=== PATIENT | male | born 1950 | race Caucasian/White ===

== ENCOUNTER 2017-02-21 11:48 | Emergency (ER) | payer OTHER ==
[2017-02-21 11:55] VITALS: RESP 16
--- NOTE | 2017-02-21 12:40 | EDPHY ---
H & P Time Seen by Provider: 02/21/17 12:12 HPI/ROS: CHIEF COMPLAINT: Right-sided abdominal pain HISTORY OF PRESENT ILLNESS: 66-year-old man woke up this morning felt fine and at 7:00 a.m. he developed right lower quadrant abdominal pain radiating to his back. He felt like he needed to have a bowel movement when he was sitting on the toilet at 10:00 a.m. waiting for his to come take him to the hospital symptoms completely resolved. No hematuria or dysuria. No diarrhea. He had a single episode of nausea and vomiting. No weakness or numbness in extremities. No recent fall injury or trauma. REVIEW OF SYSTEMS: Eye: no change in vision ENT: no sore throat Cardiac: no chest pain or syncope Pulmonary: no cough or SOB Abdomen: HPI Musculoskeletal: no back pain Skin: no rash Neuro: no headache Constitutional: no fever : no urinary symptoms A comprehensive 10 point review of systems is otherwise negative aside from elements mentioned in the history of present illness. PAST MEDICAL HISTORY: He had bilateral popliteal aneurysm bypass and left knee surgery. Social history: Here with his General Appearance: Alert and conversant, cooperative. Eyes: No scleral icterus. ENT, Mouth: Normal mucous membranes. Respiratory: Normal respiratory effort, breath sounds equal, lungs are clear to auscultation. Cardiovascular: Regular rate and rhythm. Gastrointestinal: Abdomen is soft and non tender. No pulsatile mass, normal femoral pulses, normal male , no hernia. No rebound or guarding. Neurological: Alert and oriented x3. Normally conversant. Face symmetric, ambulatory. Skin: Warm and dry, no rashes. No zoster Musculoskeletal: No peripheral edema and no joint swelling. Psychiatric: Not agitated. Emergency Department course/MDM: Symptoms completely resolved. Procedure: Limited ultrasound of aorta. Indication: Abdominal pain. Findings: No enlarged aorta or aneurysm visualized. Interpretation: Negative for AAA. Images personally obtained and interpreted by myself. Images archived. More likely to be renal colic, plan for urinalysis. Patient is currently asymptomatic. 1300: Results discussed has microscopic hematuria and currently asymptomatic, likely passed a kidney stone. Discharge with urine strainer and referral to primary care. Discussed with the patient that I think imaging would be clinically indicated as symptoms have completely resolved, patient is in agreement. Oxygen saturation incidentally noted is 91%, has no respiratory symptoms, speaks in full sentences. Smoking Status: Former smoker Constitutional: Initial Vital Signs Temperature (C) 36.8 C 02/21/17 11:51 Heart Rate 72 02/21/17 11:51 Respiratory Rate 16 02/21/17 11:51 Blood Pressure 118/77 02/21/17 11:51 O2 Sat (%) 91 L 02/21/17 11:51 O2 Delivery Mode Room Air Allergies/Adverse Reactions: No Known Allergies Allergy (Unverified 02/21/17 11:51) Home Medications: Medication Instructions Recorded Aspirin 02/21/17 Medical Decision Making Differential Diagnosis: Differential considered including but not limited to aortic aneurysm, renal colic, UTI, appendicitis, bowel obstruction, other vascular including mesenteric ischemia. - Data Points Laboratory Results: 02/21/17 12:12 Urine RBC 50-182 /hpf H /hpf (0-3) Urine WBC 1-3 /hpf /hpf (0-3) Ur Epithelial Cells NONE SEEN /lpf /lpf (NONE-1+) Urine Mucus 2+ /lpf H /lpf (NONE-1+) Departure - Departure Disposition: Home, Routine, Self-Care Clinical Impression: Renal colic on right side Condition: Good Instructions: Renal Colic (ED) Additional Instructions: Return for recurrent severe pain that does not go way in a couple of hours. Strain urine and bring any stone you get your primary care doctor for analysis. Referrals: [facility] [Other] - As per Instructions
[2017-02-21 12:48] LABS: MUCUS 2+ /lpf (NONE-1+); RBC,URINE 50-182 /hpf (0-3)
[2017-02-21 13:13] VITALS: BP 123/83; PULSE 79; TEMP 97.5; O2SAT 90
== END 2017-02-21 13:12 | disposition home or self-care (01) ==
DX: N23 Unspecified renal colic (principal); Z79.82 Long term (current) use of aspirin; Z87.891 Personal history of nicotine dependence

== ENCOUNTER 2018-02-28 04:55 | Emergency (ER) | payer OTHER ==
--- NOTE | 2018-02-28 05:04 | EDPHY ---
H & P Stated Complaint: RLQ Pain radiating to penis and rectum Time Seen by Provider: 02/28/18 05:04 HPI/ROS: HPI CHIEF COMPLAINT: Unable to urinate. HISTORY OF PRESENT ILLNESS: Very pleasant 67-year-old male, otherwise healthy presents emergency room stating he is unable to urinate. Patient reports that he urinated around 9:00 p.m. Last night, and then again around midnight. It is now 515 in the morning. He states he was trying to urinate around 5:00 a.m. In the morning was unable to do so. Fall the urge to do so. He also reports he had some right-sided back and right lower quadrant abdominal pain. Radiating into his groin. He states he has had a history of kidney stones and feels somewhat similar but not nearly as intense. He denies dysuria or blood in his urine, denies fever, denies vomiting, denies chest pain or shortness of breath. Main complaint unable to urinate and some right-sided flank pain. Of note upon arrival to the emergency room we did perform bladder scan there is not a large amount of urine in his bladder. Past Medical History: Kidney stones, DVT, popliteal aneurysm Past Surgical History: Fem-pop bypass x2. Social History: Denies drugs alcohol tobacco. Family History: Noncontributory ROS REVIEW OF SYSTEMS: 10 Systems were reviewed and negative with the exception of the elements mentioned in the history of present illness. Exam Constitutional nontoxic triage nursing summary reviewed, vital signs reviewed, awake/alert. Eyes normal conjunctivae and sclera, EOMI, PERRLA. HENT normal inspection, atraumatic, moist mucus membranes, no epistaxis, neck supple/ no meningismus, no raccoon eyes. Respiratory clear to auscultation bilaterally, normal breath sounds, no respiratory distress, no wheezing. Cardiovascular rate normal, regular rhythm, no murmur, no edema, distal pulses normal. Gastrointestinal large ventral hernia on exam, non pulsatile mass, no suprapubic tenderness or distention, soft, non-tender, no rebound, no guarding , normal bowel sounds, no distension, no pulsatile mass. Genitourinary no CVA tenderness. Musculoskeletal no midline vertebral tenderness, full range of motion, no calf swelling, no tenderness of extremities, no meningismus, good pulses, neurovascularly intact. Skin pink, warm, & dry, no rash, skin atraumatic. Neurologic awake, alert and oriented x 3, AAOx3, moves all 4 extremities equally, motor intact, sensory intact, CN II-XII intact, normal cerebellar, normal vision, normal speech. Psychiatric normal mood/affect. Heme/Lymph/Immune no lymphadenopathy. Differential Diagnosis: Includes but is not limited to in a particular order UTI, cystitis, pyelonephritis, kidney stone, hydroureter, hydronephrosis, obstructive uropathy, outflow bladder obstruction, urinary retention, BPH Medical Decision Making: Plan for this patient bladder scan initially. Bladder scan did not show much urine in his bladder. IV will be established, IV fluids, CT scan abdomen pelvis without contrast for right-sided flank pain. Check UA, kidney function and re-evaluate. Re-evaluation: CT SCAN ABDOMEN PELVIS WITHOUT CONTRAST FOR RIGHT FLANK PAIN SHOWS A STONE 8 MM X 4 MM AT THE URETEROVESICULAR JUNCTION BULGING INTO THE BLADDER. HYDRONEPHROSIS. CALLED BY DR. 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 He understands he has these and was previously noted that he has these. He is due in April to have his routine follow-up. I did explain he should be aware of these and had them further evaluated. He has no leg pain or leg weakness. His main complaint right-sided flank pain a kidney stone. Return precautions discussed with the patient understands return emergency room develops worsening flank pain, abdominal pain, fever, vomiting. Follow up with Urology Prescription given for [place], Zofran, Flomax. Understands drink lots of fluids Return emergency room if worsening symptoms questions or concerns. Source: Patient - Personal History Current Tetanus Diphtheria and Acellular Pertussis (TDAP): No - Medical/Surgical History Hx Asthma: No Hx Chronic Respiratory Disease: Yes Hx Diabetes: No Hx Cardiac Disease: No Hx Renal Disease: No Hx Cirrhosis: No Hx Alcoholism: Yes Hx HIV/AIDS: No Hx Splenectomy or Spleen Trauma: No Other PMH: RANJIT LE vascular bypass, L knee surgery, - Social History Smoking Status: Former smoker Constitutional: Initial Vital Signs Temperature (C) 36.7 C 02/28/18 04:58 Heart Rate 66 02/28/18 04:58 Respiratory Rate 20 02/28/18 04:58 Blood Pressure 150/88 H 02/28/18 04:58 O2 Sat (%) 90 L 02/28/18 04:58 O2 Delivery Mode Room Air Allergies/Adverse Reactions: No Known Allergies Allergy (Unverified 02/28/18 04:57) Home Medications: Medication Instructions Recorded Aspirin 02/21/17 Hydrocodone/APAP 5/325 [[place]ado 1 - 2 tab PO Q4H PRN #10 tab 02/28/18 5/325] Ondansetron HCl [Zofran] 4 mg PO Q4-6PRN PRN #10 tablet 02/28/18 Tamsulosin HCl [Flomax] 0.4 mg PO DAILY #10 cap 02/28/18 Medical Decision Making - Data Points Laboratory Results: Laboratory Results 02/28/18 05:30 02/28/18 05:30 02/28/18 02/28/18 02/28/18 05:40 05:30 05:30 WBC 7.11 10^3/uL 10^3/uL (3.80-9.50) RBC 5.87 10^6/uL 10^6/uL (4.40-6.38) Hgb 18.4 g/dL H g/dL (13.7-17.5) Hct 54.5 % H % (40.0-51.0) MCV 92.8 fL fL (81.5-99.8) MCH 31.3 pg pg (27.9-34.1) MCHC 33.8 g/dL g/dL (32.4-36.7) RDW 14.2 % % (11.5-15.2) Plt Count 175 10^3/uL 10^3/uL (150-400) MPV 10.1 fL fL (8.7-11.7) Neut % (Auto) 81.5 % H % (39.3-74.2) Lymph % (Auto) 10.4 % L % (15.0-45.0) [place] % (Auto) 7.3 % % (4.5-13.0) Eos % (Auto) 0.1 % L % (0.6-7.6) Baso % (Auto) 0.4 % % (0.3-1.7) Nucleat RBC Rel Count 0.0 % % (0.0-0.2) Absolute Neuts (auto) 5.79 10^3/uL 10^3/uL (1.70-6.50) Absolute Lymphs (auto) 0.74 10^3/uL L 10^3/uL (1.00-3.00) Absolute Monos (auto) 0.52 10^3/uL 10^3/uL (0.30-0.80) Absolute Eos (auto) 0.01 10^3/uL L 10^3/uL (0.03-0.40) Absolute Basos (auto) 0.03 10^3/uL 10^3/uL (0.02-0.10) Absolute Nucleated RBC 0.00 10^3/uL 10^3/uL (0-0.01) Immature Gran % 0.3 % % (0.0-1.1) Immature Gran # 0.02 10^3/uL 10^3/uL (0.00-0.10) Sodium 138 mEq/L mEq/L (135-145) Potassium 4.1 mEq/L mEq/L (3.5-5.2) Chloride 107 mEq/L mEq/L (97-110) Carbon Dioxide 23 mEq/l mEq/l (22-31) Anion Gap 8 mEq/L mEq/L (6-14) BUN 17 mg/dL mg/dL (7-23) Creatinine 0.8 mg/dL mg/dL (0.7-1.3) Estimated GFR > 60 Glucose 124 mg/dL H mg/dL (70-100) Calcium 9.5 mg/dL mg/dL (8.5-10.4) Total Bilirubin 0.7 mg/dL mg/dL (0.1-1.4) Conjugated Bilirubin 0.2 mg/dL mg/dL (0.0-0.5) Unconjugated Bilirubin 0.5 mg/dL mg/dL (0.0-1.1) AST 20 IU/L IU/L (17-59) ALT 22 IU/L IU/L (21-72) Alkaline Phosphatase 60 IU/L IU/L (38-126) Total Protein 7.3 g/dL g/dL (6.3-8.2) Albumin 4.2 g/dL g/dL (3.5-5.0) Lipase 55 IU/L IU/L (23-300) Urine Color YELLOW Urine Appearance MODERATELY TURBID Urine pH 5.0 (5.0-7.5) Ur Specific [place] 1.031 H (1.002-1.030) Urine Protein 1+ H (NEGATIVE) Urine Ketones NEGATIVE (NEGATIVE) Urine Blood 2+ H (NEGATIVE) Urine Nitrate NEGATIVE (NEGATIVE) Urine Bilirubin NEGATIVE (NEGATIVE) Urine Urobilinogen NEGATIVE EU EU (0.2-1.0) Ur Leukocyte Esterase NEGATIVE (NEGATIVE) Urine RBC 25-50 /hpf H /hpf (0-3) Urine WBC 5-10 /hpf H /hpf (0-3) Ur Epithelial Cells TRACE /lpf /lpf (NONE-1+) Urine Mucus 4+ /lpf H /lpf (NONE-1+) Urine Glucose NEGATIVE (NEGATIVE) Medications Given: Discontinued Medications Sodium Chloride (Ns) 1,000 mls @ 0 mls/hr IV EDNOW ONE; Wide Open PRN Reason: Protocol Stop: 02/28/18 05:16 Last Admin: 02/28/18 05:36 Dose: 1,000 mls Sodium Chloride (Ns) 1,000 mls @ 0 mls/hr IV EDNOW ONE; Wide Open PRN Reason: Protocol Stop: 02/28/18 05:16 Last Admin: 02/28/18 05:36 Dose: 1,000 mls Ketorolac Tromethamine (Toradol) 15 mg IVP EDNOW ONE Stop: 02/28/18 06:16 Last Admin: 02/28/18 06:20 Dose: 15 mg Ondansetron HCl (Zofran) 4 mg IVP EDNOW ONE Stop: 02/28/18 06:16 Last Admin: 02/28/18 06:20 Dose: 4 mg Departure - Departure Disposition: Home, Routine, Self-Care Clinical Impression: Kidney stone on right side Condition: Good Instructions: Kidney Stones (ED), Renal Colic (ED), Flank Pain (ED) Additional Instructions: 1. Drink lots of fluids 2. Follow up with Urology 3. Strain her urine 4. CT scan shows concern for femoral artery aneurysms please follow up with your doctor about this. Referrals: [facility] [Other] - As per Instructions John Sims MD [Medical Doctor] - As per Instructions Prescriptions: Hydrocodone/APAP 5/325 [[place] 5/325] 1 - 2 tab PO Q4H PRN #10 tab PRN Reason: Pain, Moderate Ondansetron HCl [Zofran] 4 mg PO Q4-6PRN PRN #10 tablet PRN Reason: Nausea/Vomiting, Use 1st Tamsulosin HCl [Flomax] 0.4 mg PO DAILY #10 cap
[2018-02-28] MEDS ORDERED: NS 1,000 ML IV ONE ×2 (05:15)
[2018-02-28 05:36] LABS: PLATELET COUNT 175 10^3/uL (150-400)
[2018-02-28 06:15] VITALS: BP 133/90
[2018-02-28] MEDS ORDERED: KETOROLAC 15 MG/1 ML SDV IVP ONE (06:15)
[2018-02-28] MEDS ORDERED: ONDANSETRON 4 MG/2 ML VIAL IVP ONE (06:15)
== END 2018-02-28 06:51 | disposition home or self-care (01) ==
PROC: 4A0D7LZ Measurement of Urinary Volume, Via Natural or Artificial Opening (ICD-10-PCS; principal; 2018-02-28)
DX: N13.2 Hydronephrosis with renal and ureteral calculous obstruction (principal); I72.4 Aneurysm of artery of lower extremity; E86.9 Volume depletion, unspecified
CPT/HCPCS: 96374; J1885; J2405

== ENCOUNTER 2018-05-07 14:18 | Emergency (ER) | payer OTHER ==
[2018-05-07] MEDS ORDERED: IPRATROPIUM/ALBUTEROL 3 ML DEYVIAL IH ONE (15:03)
--- NOTE | 2018-05-07 15:08 | EDPHY ---
H & P Stated Complaint: cough Time Seen by Provider: 05/07/18 14:53 HPI/ROS: CHIEF COMPLAINT: Cough, wheezing HISTORY OF PRESENT ILLNESS: 67-year-old male with COPD presents with cough and wheezing. Onset of nasal congestion and cough 5 days ago. Associated with subjective fever. The cough is productive and associated with wheezing. No shortness of breath and no fever today. Tolerating oral fluids well, without nausea. Previously diagnosed with COPD, but has never used an inhaler or steroids. REVIEW OF SYSTEMS: complete 10 point ROS reviewed and is negative except for the noted elements in the HPI - Personal History Current Tetanus/Diphtheria Vaccine: Unsure Current Tetanus Diphtheria and Acellular Pertussis (TDAP): Unsure - Medical/Surgical History Hx Asthma: No Hx Chronic Respiratory Disease: Yes Hx Diabetes: No Hx Cardiac Disease: No Hx Renal Disease: No Hx Cirrhosis: No Hx Alcoholism: Yes Hx HIV/AIDS: No Hx Splenectomy or Spleen Trauma: No Other PMH: RANJIT LE vascular bypass, L knee surgery, kidney stone, COPD - Social History Smoking Status: Former smoker Alcohol Use: Sober Drug Use: None - Physical Exam Exam: General Appearance: Alert, pleasant, nontoxic-appearing Eyes: Pupils equal and round, no conjunctival pallor or injection ENT, Mouth: Mucous membranes moist Neck: Normal inspection Respiratory: Normal respiratory rate, Diffuse expiratory wheezing Cardiovascular: Regular rate and rhythm Gastrointestinal: Abdomen is soft and nontender Neurological: A&O, nonfocal, normal gait Skin: Warm and dry Extremities: Normal inspection Psychiatric: Mood and affect normal Constitutional: Initial Vital Signs Temperature (C) 36.8 C 05/07/18 14:32 Heart Rate 76 05/07/18 14:32 Respiratory Rate 16 05/07/18 14:32 Blood Pressure 118/78 05/07/18 14:32 O2 Sat (%) 92 05/07/18 14:32 O2 Delivery Mode Room Air Allergies/Adverse Reactions: No Known Allergies Allergy (Unverified 05/07/18 14:31) Home Medications: Medication Instructions Recorded Albuterol [Proventil Inhaler HFA 2 puffs IH QID PRN #1 mdi 05/07/18 (*)] Azithromycin [Zithromax] 250 mg PO DAILY #6 tab 05/07/18 predniSONE 1 tab PO DAILY #15 tab 05/07/18 Medical Decision Making - Diagnostics Imaging Results: CXR: NAD Imaging: I viewed and interpreted images myself ED Course/Re-evaluation: This patient presents with cough and wheezing. A DuoNeb and prednisone 60 mg orally given. Feels better after the DuoNeb and decreased wheezing present. Chest x-ray reveals no evidence of pneumonia. However, given COPD and first episode of bronchospasm, I will give a trial of antibiotics for suspected pneumonia. Warning signs discussed. Differential Diagnosis: Differential diagnosis includes does not limited to pneumonia, respiratory failure, empyema, pulmonary edema, PE. - Data Points Medications Given: Discontinued Medications Albuterol/Ipratropium (Duoneb) 3 ml IH EDNOW ONE Stop: 05/07/18 15:04 Last Admin: 05/07/18 15:24 Dose: 3 ml Prednisone (Prednisone) 60 mg PO EDNOW ONE Stop: 05/07/18 16:03 Last Admin: 05/07/18 16:41 Dose: Not Given Departure - Departure Disposition: Home, Routine, Self-Care Clinical Impression: Chronic obstructive pulmonary disease with acute exacerbation Acute bronchitis Qualifiers: Bronchitis organism: unspecified organism Qualified Code(s): J20.9 - Acute bronchitis, unspecified Condition: Good Instructions: COPD (Chronic Obstructive Pulmonary Disease) (ED) Additional Instructions: Drink plenty of fluids. Use the albuterol inhaler as prescribed. Take antibiotics and steroids as prescribed. Return for worsening symptoms or any concerns. Referrals: Justa Thorne MD [Medical Doctor] - As per Instructions Prescriptions: Albuterol [Proventil Inhaler HFA (*)] 2 puffs IH QID PRN #1 mdi PRN Reason: Short Of Breath/Dyspnea Azithromycin [Zithromax] 250 mg PO DAILY #6 tab predniSONE 1 tab PO DAILY #15 tab
[2018-05-07] MEDS ORDERED: predniSONE 20 MG TAB PO ONE (16:02)
[2018-05-07 16:47] VITALS: BP 117/89
== END 2018-05-07 16:47 | disposition home or self-care (01) ==
DX: J44.1 Chronic obstructive pulmonary disease with (acute) exacerbation (principal); J20.9 Acute bronchitis, unspecified
CPT/HCPCS: J7512